=== PATIENT | female | born 1990 | race Caucasian/White ===

== ENCOUNTER 2017-07-31 01:10 | Emergency (ER) | payer MEDICAID, OTHER ==
[~2017-07-31] VITALS: Ht 165.1 cm; Wt 96.0 kg
[2017-07-31 03:50] VITALS: BP 126/61
[2017-07-31 04:36] LABS: BASOPHILS % 0.3 % (0.0-2.0); EOSINOPHILS % 0.7 % (0.0-5.0); HEMATOCRIT. 36.5 % (36.0-48.0); HEMOGLOBIN. 12.2 g/dL (12.0-16.0); LYMPHOCYTES % 15.1 % (20.0-50.0); MEAN CORPUSCULAR HEMOGLOBIN 29.4 pg (28.0-32.0); MEAN CORPUSCULAR VOLUME 88.1 fL (81.0-99.0); MEAN PLATELET VOLUME 9.3 fl (7.4-10.4); MONOCYTES % 7.8 % (2.0-8.0); NEUTROPHILS % 76.1 % (40.0-76.0); PLATELET 185 x1000/uL (130-400); RED BLOOD CELL COUNT 4.14 mill/uL (4.2-5.4); RED CELL DISTRIBUTION WIDTH 14.6 % (11.6-14.6)
[2017-07-31 04:58] LABS: CARBON DIOXIDE 25 mEq/L (21-32); CHLORIDE 107 mEq/L (98-107)
[2017-07-31 04:59] LABS: CLARITY URINE CLOUDY (CLEAR); COLOR URINE YELLOW (YELLOW); KETONES URINE 2+ (NEGATIVE); LEUKOCYTE ESTERASE URINE 3+ (NEGATIVE); NITRITE URINE POSITIVE (NEGATIVE); OCCULT BLOOD URINE 2+ (NEGATIVE); PROTEIN URINE 2+ (NEGATIVE); SPECIFIC GRAVITY URINE 1.018 (1.005-1.030); UROBILINOGEN URINE 0.2 E.U./dL (0.2-1.0)
[2017-07-31 05:04] LABS: B-HCG QUANTITATIVE 66860 mIU/mL (<3)
== END 2017-07-31 05:17 | disposition home or self-care (01) ==
LOC: ER 01:10
DX: O26.891 Other specified pregnancy related conditions, first trimester (principal); R10.31 Right lower quadrant pain; R03.0 Elevated blood-pressure reading, without diagnosis of hypertension; O23.41 Unspecified infection of urinary tract in pregnancy, first trimester; Z3A.11 11 weeks gestation of pregnancy; Z87.891 Personal history of nicotine dependence
CPT/HCPCS: 36415; 76801; 80048; 81001; 84702; 85025; 99285; Z7610

== ENCOUNTER 2017-11-05 11:25 | Observation (INO) | payer MEDICAID ==
[~2017-11-05] VITALS: Ht 162.6 cm; Wt 94.8 kg
[2017-11-05] MEDS ORDERED: PNV1TABL76 MT (11:45)
[2017-11-05] MEDS ORDERED: CEFAZOLIN 2,000 MG in DEXT 5% WATER 100 ML IV SCH (12:45)
[2017-11-05] MEDS ORDERED: LACTATED RINGERS 1,000 ML IV SCH (12:45)
== END 2017-11-05 13:15 | disposition home or self-care (01) ==
LOC: L&D 11:25
PROVIDERS: ADMIT Obstetrics & Gynecology; ATTEND Obstetrics & Gynecology
DX: O26.892 Other specified pregnancy related conditions, second trimester (principal); R10.30 Lower abdominal pain, unspecified; Z3A.00 Weeks of gestation of pregnancy not specified
CPT/HCPCS: 96365; 99281; G0378; J0690; J7120; 96360; 96361; J7060

== ENCOUNTER 2018-01-12 00:13 | Inpatient (IN) | payer MEDICAID ==
[~2018-01-12] VITALS: Ht 165.1 cm; Wt 93.0 kg
[~2018-01-12 00:13] MED LIST: PNV1TABL76 MT
[2018-01-12 01:17] LABS: BASOPHILS % 0.5 % (0.0-2.0); EOSINOPHILS % 1.3 % (0.0-5.0); HEMATOCRIT. 34.4 % (36.0-48.0); HEMOGLOBIN. 11.7 g/dL (12.0-16.0); MEAN CORPUSCULAR HEMOGLOBIN 30.1 pg (28.0-32.0); MEAN CORPUSCULAR VOLUME 88.7 fL (81.0-99.0); MEAN PLATELET VOLUME 10.8 fl (7.4-10.4); MONOCYTES % 8.7 % (2.0-8.0); NEUTROPHILS % 69.5 % (40.0-76.0); PLATELET 162 x1000/uL (130-400); RED BLOOD CELL COUNT 3.88 mill/uL (4.2-5.4); RED CELL DISTRIBUTION WIDTH 13.9 % (11.6-14.6)
[2018-01-12 01:22] LABS: CHLORIDE 107 mEq/L (98-107)
[2018-01-12] MEDS ORDERED: ENOXAPARIN 60MG/0.6ML SYR SUBCUT ONE (03:30)
[2018-01-12] MEDS ORDERED: LORAZEPAM 2MG/ML CPJ IV ONE (03:30)
[2018-01-12 04:00] VITALS: BP 101/61
[2018-01-12 05:45] VITALS: BP 101/61
[2018-01-12 08:00] VITALS: BP 92/47
[2018-01-12 08:16] LABS: *BENZODIAZEPINES SCREEN URINE NEGATIVE (NEGATIVE); *COCAINE SCREEN URINE NEGATIVE (NEGATIVE); METHADONE URINE SCREEN NEGATIVE (NEGATIVE); OPIATES URINE SCREEN NEGATIVE (NEGATIVE)
[2018-01-12 08:17] LABS: *AMPHETAMINES SCREEN URINE NEGATIVE (NEGATIVE); CANNABINOID URINE SCREEN NEGATIVE (NEGATIVE); PHENCYCLIDINE URINE SCREEN NEGATIVE (NEGATIVE)
[2018-01-12 08:18] LABS: *BARBITURATES SCREEN URINE NEGATIVE (NEGATIVE)
[2018-01-12] MEDS ORDERED: PRENATAL VIT/FE FUMARATE/FA TABLET PO SCH (09:00)
[2018-01-12 11:17] LABS: CREATINE KINASE 25 IU/L (26-192)
[2018-01-12 11:19] LABS: CREATINE KINASE MB FRACTION < 0.5 ng/mL (0.5-3.6)
[2018-01-12 12:00] VITALS: BP 98/60
[2018-01-12 14:56] LABS: CLARITY URINE CLEAR (CLEAR); COLOR URINE YELLOW (YELLOW); KETONES URINE NEGATIVE (NEGATIVE); LEUKOCYTE ESTERASE URINE 2+ (NEGATIVE); NITRITE URINE NEGATIVE (NEGATIVE); OCCULT BLOOD URINE NEGATIVE (NEGATIVE); PH URINE 6.5 (4.5-8.0); PROTEIN URINE NEGATIVE (NEGATIVE); SPECIFIC GRAVITY URINE 1.005 (1.005-1.030); UROBILINOGEN URINE 0.2 E.U./dL (0.2-1.0)
[2018-01-12 16:00] VITALS: BP 100/70
[2018-01-12 16:19] VITALS: BP 100/70
== END 2018-01-12 16:37 | disposition home or self-care (01) | DRG 566 ==
LOC: ER 00:45 → 7WST 03:20 → EDBEDREQ 03:22 → EDBEDREQTM 03:22 → EDBEDREQSVC 03:22 → ENRESERV 04:08
PROVIDERS: ADMIT Internal Medicine; ATTEND Internal Medicine
DX: O26.893 Other specified pregnancy related conditions, third trimester (principal); O99.113 Other diseases of the blood and blood-forming organs and certain disorders involving the immune mechanism complicating pregnancy, third trimester; D72.829 Elevated white blood cell count, unspecified; R07.89 Other chest pain; Z79.899 Other long term (current) drug therapy; Z3A.35 35 weeks gestation of pregnancy
CPT/HCPCS: 36415; 71045; 78580; 80048; 80305; 81003; 82550; 82553; 83880; 84484; 85025; 85379; 93005; 93970; 96372; 96374; 99285; J1650; J2060